=== PATIENT | male | born 1955 ===

== ENCOUNTER → 2023-01-27 13:44 | Outpatient (BNVA) | payer MEDICARE, BC, SELFPAY | PROVIDERS: PCP Neuromusculoskeletal Medicine & OMM; Referring Provider Neuromusculoskeletal Medicine & OMM; Visit Provider Psychiatry & Neurology Neurology | DX: H49.02 Third [oculomotor] nerve palsy, left eye (principal); Z79.82 Long term (current) use of aspirin; Z79.02 Long term (current) use of antithrombotics/antiplatelets; R73.03 Prediabetes; I10 Essential (primary) hypertension | CPT/HCPCS: 99205 ==